=== PATIENT | male | born 1980 | race Caucasian/White ===

== ENCOUNTER 2024-08-27 17:43 | Inpatient (IN) ==
--- NOTE | 2024-08-27 18:28 | Emergency Department Note ---
Impression & Plan Alcohol abuse, Alcohol withdrawal ED Provider Note NAME: CHANDRAKANT MOLINA AGE: 44 SEX: M : 1980 ARRIVES VIA: Walk-In INFORMANT: Patient, ED PROVIDER(S): Mariano Roque MD CHIEF COMPLAINT: Detox request MEDICAL DECISION MAKING: Patient presents due to concern for detox request. IV was established and blood work was obtained. Patient with a normal white count H&H and platelet count. The patient's kidney function is unremarkable. Alcohol was ordered which was 100. Patient was ordered nicotine gum as well as IV Ativan for anxiety. Chest x-ray performed shows infectious inflammatory bronchiolitis versus reactive small airway disease. The patient has no acute respiratory complaints at this time. Normal white count do not believe requires any specific treatment as Ki has clear lung sounds. I did speak with case management who evaluated the patient after discussion the patient will remain inpatient for detox like to go home thereafter. I did speak the on-call hospital service Dr. Chavez and the patient was admitted to medicine service. Dr. Chavez would put in alcohol withdrawal medications. Discussion w/ other healthcare providers: Dr. Chavez inpatient medicine service Prior /Outside records reviewed: None Differential diagnosis: Infection, dehydration, metabolic abnormality, hypo/hyperglycemia, electrolyte imbalance, anemia, UTI, pneumonia, thyroid dysfunction among others were considered. Diagnostics, as interpreted by me: ECG: Normal sinus rhythm, rate of 82, normal intervals, normal axis no ST elevations. Cardiac monitoring: An order was placed for continuous cardiac monitoring. The monitor shows a rate of 75 with sinus rhythm. Patient was placed on pulse oximetry Medical decision rules: None Imaging studies: I informally interpreted the patient's Chest x-ray does not show obvious pneumonia or pneumothorax with formal report to follow. HPI: Patient presents due to concern for alcohol use. The patient is requesting detox. Patient does state that he does suffer from significant anxiety. The patient states that he does not like his job and thinks that this also may be contributory. He does report that he typically drinks 8 drinks in the evenings after work. Patient denies any drug use but does have a prior history of opiate abuse and is currently on Suboxone. PAST MEDICAL HISTORY: See Below PAST SURGICAL HISTORY: See Below SOCIAL HISTORY: See Below HOME MEDICATIONS: See Below ALLERGIES: See Below VITALS: See Below PHYSICAL EXAMINATION: GENERAL: NAD, non-toxic. EYE EXAM: Normal conjunctiva. PERRL, no anisocoria and EOM's grossly intact w/o pain. OROPHARYNX: Moist mucus membranes, grossly normal dentition. No tongue fasciculations. NECK: Trachea midline, no stridor. Supple, no nuchal rigidity, no adenopathy, non-tender. No signs of meningismus. FROM of the neck with good chin to chest and neck extension. LUNGS: Clear to auscultation. Normal chest wall mechanics. HEART: NSR, no MRG. ABDOMEN: Abdomen soft, non-tender, no masses, no rebound or guarding. BACK: No CVA TTP. SKIN: No rashes and no bruising. UPPER EXTREMITIES: Upper extremities are grossly normal. No tremors in the upper extremities. LOWER EXTREMITIES: Grossly normal, no edema. NEURO EXAM: A&O x3, cranial nerves II-XII grossly intact, normal speech, moves all 4 extremities. Past Med/Surg History Problem List (Updated 08/31/24 @ 19:16 by Mariano Roque MD) Alcohol abuse (Acute) Alcohol withdrawal (Acute) Back pain, lumbosacral (Acute) Kidney stone (Acute) Social History Smoking Status: Current every day smoker Tobacco Type: Cigarettes Second Hand Exposure: No; Do You Dip or Chew Tobacco: No; Tobacco Cessation Education Requested by Patient: No Hx Alcohol Use: Yes Alcohol type: beer and hard liquor Hx Substance Use: Yes Last Used Substance Other:: Years ago Preferred Language: Greenlandic Communication Ability: Effective Hotel Server Required: No Beliefs That Will Affect Care: None Current Living Situation: Alone Current Living Situation Comment: Apartment with dog and cat Feels Safe at Home: Yes Assistive Devices: None Allergies Allergies Allergy/AdvReac Type Severity Reaction Status Date / Time No Known Allergies Allergy Verified 08/27/24 10:03 Home Meds Home Medications Medication Instructions Recorded Confirmed omeprazole 20 mg capsule,delayed 20 mg PO QAM 04/22/23 08/28/24 release propranolol 20 mg tablet 20 mg PO BID 04/22/23 08/28/24 buprenorphine 2 mg-naloxone 0.5 mg 1 tab sublingual DAILY 08/27/24 08/28/24 sublingual tablet Previous Rx's Medication Instructions Recorded alprazolam 1 mg tablet 1 mg PO DAILY PRN Anxiety #10 tabs 08/30/24 atorvastatin 20 mg tablet 20 mg PO QAM #30 tabs 08/30/24 folic acid 1 mg tablet 1 mg PO QAM #30 tabs 08/30/24 thiamine HCl (vitamin B1) 100 mg 100 mg PO QAM #30 tabs 08/30/24 tablet Results & Data (ED) Vital Signs Vital Signs - 24 hr 08/27/24 17:51 08/27/24 18:17 Temperature 36.6 C Temperature Source Skin Pulse Rate 110 H 90 Respiratory Rate 18 Blood Pressure 145/108 H Blood Pressure Mean 120 Pulse Oximetry 99 Oxygen Delivery Method Room Air Sepsis Recent Fever Within 48 Hours No Sepsis New/Unexplained Change in Mental Status No Sepsis Action Taken by Nursing No Action Required Home Medications Current Medication List: was personally reviewed by me Laboratory Data Attestation: I reviewed the patient's lab results. 08/29/24 06:15 08/29/24 06:15 Lab Results 08/27/24 08/27/24 Range/Units 18:14 21:00 WBC 10.20 (4.8-10.8) K/ul RBC 5.24 (4.70-6.10) M/uL Hgb 15.6 (14.0-18.0) g/dl Hct 43.8 (42.0-52.0) % MCV 83.6 (80.0-100.0) fL MCH 29.8 (25.0-34.0) pg MCHC 35.6 (32.0-36.0) g/dL RDW Std Deviation 35.0 L (36.4-46.3) fL RDW Coeff of Nik 11.7 (11.5-14.5) % Plt Count 262 (130-400) K/uL MPV 10.2 (9.4-12.4) fL Immature Gran % (Auto) 0.3 % Neut % (Auto) 36.9 % Lymph % (Auto) 50.2 % [place] % (Auto) 6.3 % Eos % (Auto) 5.4 % Baso % (Auto) 0.9 % Neut # (Auto) 3.77 (1.40-6.50) K/uL Lymph # (Auto) 5.12 H (1.20-3.40) K/uL [place] # (Auto) 0.64 H (0.11-0.59) K/uL Eos # (Auto) 0.55 H (0.00-0.50) K/uL Baso # (Auto) 0.09 (0.00-0.20) K/uL Immature Gran # (Auto) 0.03 (0.01-0.20) K/uL Sodium 138 (136-145) mmol/L Potassium 3.8 (3.5-5.1) mmol/L Chloride 104 (98-107) mmol/L Carbon Dioxide 24 (21-32) mmol/L Anion Gap 10 (3-11) BUN 17 (6-23) mg/dl Creatinine 0.77 (0.6-1.4) mg/dl Est Cr Clr Drug Dosing 143.3 ml/min eGFR 114.63 BUN/Creatinine Ratio 22.1 H (10-20) Glucose 95 (70-99(Fasting)) mg/dl Calcium 9.6 (8.6-10.3) mg/dl Magnesium 2.1 (1.7-2.4) mg/dl Total Bilirubin 0.7 (0.2-1.0) mg/dl AST 36 (13-39) U/L ALT 48 (7-52) U/L Alkaline Phosphatase 66 (34-104) U/L Total Protein 8.0 (6.0-8.3) gm/dl Albumin 4.9 (3.4-5.0) gm/dl Globulin 3.1 (2.5-4.0) gm/dl Albumin/Globulin Ratio 1.6 (0.9-2) Lipase 44 (11-82) U/L TSH 2.140 (0.300-4.500) uIu/ml Ethyl Alcohol mg/dL 100.4 H (<10.0) mg/dl Administered Medications Discontinued Medications Acetaminophen (Acetaminophen 500 Mg Tab) 500 mg PO Q6H PRN PRN Reason: fever/pain Stop: 09/28/24 19:28 Last Admin: 08/29/24 19:37 Dose: 500 mg Documented By: JOHNNY Alprazolam (Alprazolam 0.5 Mg Tablet) 1 mg PO TID PRN PRN Reason: anxiety Stop: 09/27/24 01:48 Last Admin: 08/28/24 02:06 Dose: 1 mg Documented By: EDDIE Alprazolam (Alprazolam 0.5 Mg Tablet) 1 mg PO BID PRN PRN Reason: anxiety Stop: 09/27/24 01:48 Last Admin: 08/29/24 19:36 Dose: 1 mg Documented By: inspector paper products: 08/29/24 08:25 Dose: 1 mg Documented By: Admin: 08/28/24 20:11 Dose: 1 mg Documented By: inspector paper products: 08/28/24 10:01 Dose: 1 mg Documented By: TRISTA Atorvastatin Calcium (Atorvastatin 20 Mg Tab) 20 mg PO QAM [facility] Stop: 09/28/24 08:59 Last Admin: 08/30/24 08:27 Dose: 20 mg Documented By: Admin: 08/29/24 08:26 Dose: 20 mg Documented By: TRISTA Buprenorphine/Naloxone (Buprenorphine/Naloxone 2/0.5mg Tab) 0.5 tab SL BID [facility] Stop: 09/26/24 21:44 Last Admin: 08/29/24 08:25 Dose: 0.5 tab Documented By: Admin: 08/28/24 21:58 Dose: 0.5 tab Documented By: inspector paper products: 08/28/24 10:00 Dose: 0.5 tab Documented By: Admin: 08/27/24 22:58 Dose: 0.5 tab Documented By: CHARMAINE Buprenorphine/Naloxone (Buprenorphine/Naloxone 2/0.5mg Tab) 0.5 tab SL BID17 [facility] Stop: 09/29/24 08:59 Last Admin: 08/30/24 08:26 Dose: 0.5 tab Documented By: VERN Buprenorphine/Naloxone (Buprenorphine/Naloxone 2/0.5mg Tab) 0.5 tab SL ONE ONE Stop: 08/29/24 18:46 Last Admin: 08/29/24 18:44 Dose: 0.5 tab Documented By: TRISTA Diazepam (Diazepam 5 Mg Tablet) 5 mg PO Q6H [facility] Stop: 09/27/24 10:59 Last Admin: 08/29/24 05:14 Dose: 5 mg Documented By: inspector paper products: 08/29/24 00:33 Dose: 5 mg Documented By: inspector paper products: 08/28/24 16:39 Dose: 5 mg Documented By: Admin: 08/28/24 11:23 Dose: 5 mg Documented By: TRISTA Diazepam (Diazepam 5 Mg Tablet) 5 mg PO Q8H [facility] Stop: 09/28/24 12:59 Last Admin: 08/30/24 04:28 Dose: 5 mg Documented By: inspector paper products: 08/29/24 21:03 Dose: 5 mg Documented By: inspector paper products: 08/29/24 12:54 Dose: 5 mg Documented By: TMP Docusate Sodium (Docusate Sodium 100 Mg Cap) 100 mg PO BID [facility] Stop: 09/28/24 12:14 Last Admin: 08/30/24 08:28 Dose: 100 mg Documented By: Admin: 08/29/24 21:03 Dose: 100 mg Documented By: inspector paper products: 08/29/24 12:54 Dose: 100 mg Documented By: TMP Enoxaparin Sodium (Enoxaparin Inj 40 Mg/0.4 Ml Syr) 40 mg SQ QAM [facility] Stop: 09/27/24 08:59 Last Admin: 08/30/24 08:26 Dose: Not Given Documented By: Admin: 08/29/24 08:26 Dose: Not Given Documented By: Admin: 08/28/24 08:54 Dose: Not Given Documented By: TMP Folic Acid (Folic Acid 1 Mg Tab) 1 mg PO QAM [facility] Stop: 09/27/24 08:59 Last Admin: 08/30/24 08:27 Dose: 1 mg Documented By: Admin: 08/29/24 09:25 Dose: 1 mg Documented By: Admin: 08/28/24 08:53 Dose: 1 mg Documented By: TMP Gabapentin (Gabapentin 600 Mg Tab) 1,200 mg PO NOW ONE Stop: 08/27/24 21:40 Last Admin: 08/27/24 22:58 Dose: 1,200 mg Documented By: CHARMAINE Gabapentin (Gabapentin 600 Mg Tab) 600 mg PO Q6H [facility] Stop: 08/28/24 11:01 Last Admin: 08/28/24 11:23 Dose: 600 mg Documented By: Admin: 08/28/24 06:04 Dose: 600 mg Documented By: EDDIE Gabapentin (Gabapentin 600 Mg Tab) 600 mg PO Q8H [facility] Stop: 08/29/24 11:01 Last Admin: 08/29/24 12:00 Dose: 600 mg Documented By: Admin: 08/29/24 02:53 Dose: 600 mg Documented By: inspector paper products: 11/08/24 17:54 Dose: 600 mg Documented By: TRISTA Gabapentin (Gabapentin 600 Mg Tab) 600 mg PO Q12H [facility] Stop: 08/30/24 11:01 Last Admin: 08/29/24 22:59 Dose: 600 mg Documented By: JOHNNY Thiamine HCl 100 mg/ Syringe 10 mls @ 2 mls/min IV NOW STA Stop: 08/27/24 20:48 Last Admin: 08/27/24 21:30 Dose: 2 mls/min Documented By: CHARMAINE Lorazepam (Lorazepam 2 Mg/1 Ml Vial) 1 mg IV NOW STA Stop: 08/27/24 21:05 Last Admin: 08/27/24 21:20 Dose: 1 mg Documented By: VALERIE Miscellaneous (Remove Nicoderm Patch) 1 each N/A DAILY@59 [facility] Stop: 09/28/24 08:58 Last Admin: 08/30/24 08:26 Dose: 1 each Documented By: Admin: 08/29/24 08:24 Dose: Not Given Documented By: TRISTA Multivitamins (Multivitamin Tab) 1 tab PO [facility] Stop: 09/27/24 08:59 Last Admin: 08/30/24 08:27 Dose: 1 tab Documented By: Admin: 08/29/24 08:26 Dose: 1 tab Documented By: Admin: 08/28/24 08:54 Dose: 1 tab Documented By: TRISTA Nicotine (Nicotine 14 Mg/24 Hr Patch) 1 patch TD [facility] Stop: 09/27/24 00:59 Last Admin: 08/30/24 08:26 Dose: Not Given Documented By: Admin: 08/29/24 09:25 Dose: 1 patch Documented By: Admin: 08/28/24 02:05 Dose: 1 patch Documented By: EDDIE Nicotine Polacrilex (Nicotine Polacrilex 2 Mg Gum) 1 piece MT ONCE ONE Stop: 08/27/24 21:05 Last Admin: 08/27/24 21:20 Dose: 1 piece Documented By: VALERIE Pantoprazole Sodium (Pantoprazole 40 Mg Tab) 40 mg PO QAM [facility] Stop: 09/27/24 08:59 Last Admin: 08/30/24 08:27 Dose: 40 mg Documented By: Admin: 08/29/24 08:25 Dose: 40 mg Documented By: Admin: 08/28/24 08:54 Dose: 40 mg Documented By: TMP Polyethylene Glycol (Polyethylene (Miralax) 17 Gm Pack) 17 gm PO DAILY PRN PRN Reason: Constipation Stop: 09/28/24 14:43 Last Admin: 08/29/24 16:33 Dose: 17 gm Documented By: TMP Propranolol HCl (Propranolol Hcl 20 Mg Tab) 20 mg PO BID [facility] Stop: 09/27/24 01:04 Last Admin: 08/30/24 08:27 Dose: 20 mg Documented By: Admin: 08/29/24 21:03 Dose: 20 mg Documented By: inspector paper products: 08/29/24 08:26 Dose: 20 mg Documented By: Admin: 08/28/24 22:00 Dose: 20 mg Documented By: inspector paper products: 08/28/24 08:54 Dose: 20 mg Documented By: Admin: 08/28/24 02:04 Dose: 20 mg Documented By: BMS Thiamine HCl (Thiamine Hcl 100 Mg Tab) 100 mg PO QAM [facility] Stop: 09/27/24 08:59 Last Admin: 08/30/24 08:26 Dose: 100 mg Documented By: Admin: 08/29/24 08:26 Dose: 100 mg Documented By: Admin: 08/28/24 08:54 Dose: 100 mg Documented By: TMP Imaging Data Radiologist's Impression: Chest X-Ray 08/27/24 18:44 EXAM: Portable AP chest radiograph TECHNIQUE: AP portable radiograph of the chest was obtained. INDICATION: Shortness of breath Comparison: Chest radiograph April 22, 2023 FINDINGS: LINES and TUBES: None CARDIOVASCULAR: Cardiac silhouette again appears mildly prominent, similar to previous. LUNGS/PLEURA: Peribronchial cuffing which may be seen with infectious/inflammatory bronchiolitis versus reactive small airways disease. There are patchy bibasilar densities. No significant pleural fluid. No discernible pneumothorax. OSSEOUS/OTHER: No displaced acute osseous process identified. IMPRESSION: Peribronchial cuffing which may be seen with infectious/inflammatory bronchiolitis versus reactive small airways disease. There are patchy bibasilar densities which may be due to atelectasis or mild airspace disease. Unchanged mildly prominent size of the cardiac silhouette Electronically signed by Balwinder Delgado 08-27-2024 8:20 PM Discharge Plan Visit Data Chief Complaint: Detox Request Stated Complaint: ANXIETY AND NEED OF ALCOHOL DETOX ED Provider: Mariano Roque Discharge Problem: Alcohol abuse, Alcohol withdrawal Patient Disposition: Admitted As Inpatient Discharge Instructions Interventions: ED Discharge Assessment Last Done: 08/28/24 00:14 Discharge Problem: Alcohol withdrawal Qualifiers: Complication of substance-induced condition: uncomplicated Qualified Code(s): F 10.930 - Alcohol use, unspecified with withdrawal, uncomplicated
[2024-08-27 18:58] LABS: Hematocrit (blood only) 43.8 % (42.0-52.0); Hemoglobin 15.6 g/dl (14.0-18.0); Mean Corpuscular Hemoglobin 29.8 pg (25.0-34.0); Mean Corpuscular Hgb Conc 35.6 g/dL (32.0-36.0); Mean Corpuscular Volume 83.6 fL (80.0-100.0); Mean Platelet Volume 10.2 fL (9.4-12.4); Platelet Count 262 K/uL (130-400); RDW Coefficient of Variation 11.7 % (11.5-14.5); Red Blood Count 5.24 M/uL (4.70-6.10)
[2024-08-27 19:05] LABS: Albumin Globulin Ratio 1.6 (0.9-2); Albumin Level 4.9 gm/dl (3.4-5.0); BUN Creatinine Ratio 22.1 (10-20); Bilirubin,Total 0.7 mg/dl (0.2-1.0); Calcium 9.6 mg/dl (8.6-10.3); Creatinine Clr Calc Pharmacy 143.3 ml/min; Globulin 3.1 gm/dl (2.5-4.0); Magnesium 2.1 mg/dl (1.7-2.4); Potassium 3.8 mmol/L (3.5-5.1)
[2024-08-27 19:16] LABS: Basophils # (auto) 0.09 K/uL (0.00-0.20); Basophils % (auto) 0.9 %; Eosinophils # (auto) 0.55 K/uL (0.00-0.50); Eosinophils % (auto) 5.4 %; Immature Granulocytes # (auto) 0.03 K/uL (0.01-0.20); Immature Granulocytes % (auto) 0.3 %; Lymphocytes # (auto) 5.12 K/uL (1.20-3.40); Lymphocytes % (auto) 50.2 %; Monocytes # (auto) 0.64 K/uL (0.11-0.59); Monocytes % (auto) 6.3 %; Neutrophils # (auto) 3.77 K/uL (1.40-6.50); Neutrophils % (auto) 36.9 %
[2024-08-27 19:20] LABS: Thyroid Stimulating Hormone 2.14 uIu/ml (0.300-4.500)
--- NOTE | 2024-08-27 20:20 | XRay Report ---
EXAM: Portable AP chest radiograph TECHNIQUE: AP portable radiograph of the chest was obtained. INDICATION: Shortness of breath Comparison: Chest radiograph April 22, 2023 FINDINGS: LINES and TUBES: None CARDIOVASCULAR: Cardiac silhouette again appears mildly prominent, similar to previous. LUNGS/PLEURA: Peribronchial cuffing which may be seen with infectious/inflammatory bronchiolitis versus reactive small airways disease. There are patchy bibasilar densities. No significant pleural fluid. No discernible pneumothorax. OSSEOUS/OTHER: No displaced acute osseous process identified. IMPRESSION: Peribronchial cuffing which may be seen with infectious/inflammatory bronchiolitis versus reactive small airways disease. There are patchy bibasilar densities which may be due to atelectasis or mild airspace disease. Unchanged mildly prominent size of the cardiac silhouette Electronically signed by Balwinder Delgado 08-27-2024 8:20 PM
[2024-08-27] MEDS: NICOTINE POLACRILEX 2 MG GUM MT ONE (21:20)
[2024-08-27] MEDS: LORazepam 2 MG/1 ML VIAL IV STA (21:20)
[2024-08-27] MEDS: THIAMINE HCL 100 MG in SYRINGE 9 ML IV STA (21:30)
--- NOTE | 2024-08-27 21:37 | History & Physical Report ---
Date of Service August 27, 2024 Assessment & Plan (1) Alcohol withdrawal: Plan: situational hypertension, secondary to above hyperlipidemia, statin Rx discontinued 2 years ago by outpatient provider for unclear reasons as per patient possible BETH, sleep study to be arranged by outpatient provider GERD, stable on PPI anxiety disorder on propranolol, suboptimal, patient follows with [facility] psychiatrist chronic pain/history opioid addiction on Suboxone ongoing tobacco/alcohol abuse Medical telemetry FELI S, DT precautions Utilize propranolol prescribed by psychiatrist for anxiety for BP control Recheck lipid profile, patient would like to resume statin Rx if indicated Nicotine patch DVT prophylaxis. Lovenox subcu Full code Text document was generated using Jirafe voice recognition software. It may contain grammatical or spelling errors. Kindly contact undersigned for clarification of any documentation item in question. History of Present Illness Chief Complaint: Detox Primary Care Provider: Merlin Guthrie MD History obtained from patient, family, and records. Medical history significant for situational hypertension, hyperlipidemia, possible BETH, GERD, anxiety disorder, chronic pain/history opioid addiction on Suboxone, ongoing tobacco/alcohol abuse. Patient noted increased anxiety since last night. 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 Denies suicidality. Patient seen at urgent care center today. Patient proceeded to ER for detox. No prior history of alcohol withdrawal seizures. Medical History as above Surgical History : None Family History : Kidney problems Personal/Social history : Half pack daily, alcohol abuse, protective services officer Allergies Allergy/AdvReac Type Severity Reaction Status Date / Time No Known Allergies Allergy Verified 08/27/24 10:03 Home Medications Medication Instructions Recorded Confirmed Type multivitamin 1 tab PO QAM #0 tabs 08/23/13 08/27/24 History hydroxyzine pamoate 50 mg capsule 50 mg PO TID PRN Unknown 04/22/23 04/22/23 History omeprazole 20 mg capsule,delayed 20 mg PO QAM 04/22/23 08/27/24 History release propranolol 20 mg tablet 20 mg PO BID PRN Anxiety 04/22/23 08/27/24 History buprenorphine 2 mg-naloxone 0.5 mg 1 tab sublingual DAILY 08/27/24 08/27/24 His tory sublingual tablet alprazolam 1 mg tablet 1 mg PO DAILY PRN Anxiety 08/28/24 08/28/24 History Past Med/Surg History Problem List (Updated 08/28/24 @ 09:01 by Russel Chavez MD) Alcohol withdrawal Back pain, lumbosacral (Acute) Kidney stone (Acute) Social History Smoking Status: Current every day smoker Tobacco Type: Cigarettes Second Hand Exposure: No; Do You Dip or Chew Tobacco: No; Tobacco Cessation Education Requested by Patient: No Hx Alcohol Use: Yes Alcohol type: beer and hard liquor Hx Substance Use: Yes Last Used Substance Other:: Years ago Preferred Language: Danish Special Class Welder Required: No Beliefs That Will Affect Care: None Current Living Situation: Alone Current Living Situation Comment: Apartment with dog and cat Feels Safe at Home: Yes Review of Systems Review of Systems: As per HPI, all other systems reviewed and negative Physical Exam Physical Exam: GENERAL: Slightly anxious, pleasant, obese, tremulous, no respiratory distress SKIN: Normal color, warm HEENT: [place] palpebral conjunctivae, no ptosis, dry buccal mucosa NECK : Supple, no tenderness CHEST : CTA, no tenderness HEART : RRR, no obvious murmurs ABDOMEN: Some distention, nontender EXTREMITIES : No LE swelling/tenderness, no other conspicuous deformities noted NEUROLOGIC : Coherent, no facial asymmetry, tremulous, no other gross focality Results & Data Results & Data Vital Signs (Past 12 Hours) Vital Signs Temp Pulse Pulse Resp BP BP Pulse Ox 08/27/24 19:52 94 H 16 98 08/27/24 19:51 98 08/27/24 19:44 94 H 16 142/93 H 98 08/27/24 18:17 90 08/27/24 17:51 36.6 C 110 H 18 145/108 H 99 O2 Del Method 08/27/24 19:52 Room Air 08/27/24 19:51 Room Air 08/27/24 19:44 Room Air 08/27/24 18:17 08/27/24 17:51 Room Air Laboratory Results Laboratory Results WBC 10.20 K/ul (4.8-10.8) 08/27/24 18:14 RBC 5.24 M/uL (4.70-6.10) 08/27/24 18:14 Hgb 15.6 g/dl (14.0-18.0) 08/27/24 18:14 Hct 43.8 % (42.0-52.0) 08/27/24 18:14 MCV 83.6 fL (80.0-100.0) 08/27/24 18:14 MCH 29.8 pg (25.0-34.0) 08/27/24 18:14 MCHC 35.6 g/dL (32.0-36.0) 08/27/24 18:14 RDW Std Deviation 35.0 fL (36.4-46.3) L 08/27/24 18:14 RDW Coeff of Nik 11.7 % (11.5-14.5) 08/27/24 18:14 Plt Count 262 K/uL (130-400) 08/27/24 18:14 MPV 10.2 fL (9.4-12.4) 08/27/24 18:14 Immature Gran % (Auto) 0.3 % 08/27/24 18:14 Neut % (Auto) 36.9 % 08/27/24 18:14 Lymph % (Auto) 50.2 % 08/27/24 18:14 [place] % (Auto) 6.3 % 08/27/24 18:14 Eos % (Auto) 5.4 % 08/27/24 18:14 Baso % (Auto) 0.9 % 08/27/24 18:14 Neut # (Auto) 3.77 K/uL (1.40-6.50) 08/27/24 18:14 Lymph # (Auto) 5.12 K/uL (1.20-3.40) H 08/27/24 18:14 [place] # (Auto) 0.64 K/uL (0.11-0.59) H 08/27/24 18:14 Eos # (Auto) 0.55 K/uL (0.00-0.50) H 08/27/24 18:14 Baso # (Auto) 0.09 K/uL (0.00-0.20) 08/27/24 18:14 Immature Gran # (Auto) 0.03 K/uL (0.01-0.20) 08/27/24 18:14 Sodium 138 mmol/L (136-145) 08/27/24 18:14 Potassium 3.8 mmol/L (3.5-5.1) 08/27/24 18:14 Chloride 104 mmol/L (98-107) 08/27/24 18:14 Carbon Dioxide 24 mmol/L (21-32) 08/27/24 18:14 Anion Gap 10 (3-11) 08/27/24 18:14 BUN 17 mg/dl (6-23) 08/27/24 18:14 Creatinine 0.77 mg/dl (0.6-1.4) 08/27/24 18:14 Est Cr Clr Drug Dosing 143.3 ml/min 08/27/24 18:14 eGFR 114.63 08/27/24 18:14 BUN/Creatinine Ratio 22.1 (10-20) H 08/27/24 18:14 Glucose 95 mg/dl (70-99(Fasting)) 08/27/24 18:14 Calcium 9.6 mg/dl (8.6-10.3) 08/27/24 18:14 Magnesium 2.1 mg/dl (1.7-2.4) 08/27/24 18:14 Total Bilirubin 0.7 mg/dl (0.2-1.0) 08/27/24 18:14 AST 36 U/L (13-39) 08/27/24 18:14 ALT 48 U/L (7-52) 08/27/24 18:14 Alkaline Phosphatase 66 U/L (34-104) 08/27/24 18:14 Total Protein 8.0 gm/dl (6.0-8.3) 08/27/24 18:14 Albumin 4.9 gm/dl (3.4-5.0) 08/27/24 18:14 Globulin 3.1 gm/dl (2.5-4.0) 08/27/24 18:14 Albumin/Globulin Ratio 1.6 (0.9-2) 08/27/24 18:14 Lipase 44 U/L (11-82) 08/27/24 18:14 TSH 2.140 uIu/ml (0.300-4.500) 08/27/24 18:14 Impressions Chest X-Ray 08/27/24 18:44 EXAM: Portable AP chest radiograph TECHNIQUE: AP portable radiograph of the chest was obtained. INDICATION: Shortness of breath Comparison: Chest radiograph April 22, 2023 FINDINGS: LINES and TUBES: None CARDIOVASCULAR: Cardiac silhouette again appears mildly prominent, similar to previous. LUNGS/PLEURA: Peribronchial cuffing which may be seen with infectious/inflammatory bronchiolitis versus reactive small airways disease. There are patchy bibasilar densities. No significant pleural fluid. No discernible pneumothorax. OSSEOUS/OTHER: No displaced acute osseous process identified. IMPRESSION: Peribronchial cuffing which may be seen with infectious/inflammatory bronchiolitis versus reactive small airways disease. There are patchy bibasilar densities which may be due to atelectasis or mild airspace disease. Unchanged mildly prominent size of the cardiac silhouette Electronically signed by Balwinder Delgado 08-27-2024 8:20 PM Diagnostic Findings EKG as per my interpretation : Rate 80, NSR, normal axis, T wave flattening inferior leads
[2024-08-27] MEDS ORDERED: Ativan IV Alcohol Withdrawal--Active Protocol IV PRN (21:39)
[2024-08-27] MEDS ORDERED: GABAPENTIN 1200MG ALCOHOL WITHDRAWAL LOAD PO STA (21:39)
[2024-08-27] MEDS ORDERED: LORazepam 2 MG/1 ML VIAL IV PRN ×3 (21:39)
[2024-08-27] MEDS ORDERED: NICOTINE POLACRILEX 2 MG GUM MT PRN (21:41)
[2024-08-27] MEDS ORDERED: PROMETHAZINE 12.5 MG/50.5 ML BAG IV PRN (21:42)
[2024-08-27] MEDS: BUPRENORPHINE/NALOXONE 2/0.5MG TAB SL SCH (22:58)
[2024-08-27] MEDS: GABAPENTIN 600 MG TAB PO ONE (22:58)
[2024-08-28] MEDS ORDERED: ALPRAZolam 0.5 MG TABLET PO PRN (01:49)
[2024-08-28] MEDS: PROPRANOLOL HCL 20 MG TAB PO SCH (02:04)
[2024-08-28] MEDS: NICOTINE 14 MG/24 HR PATCH TD SCH (02:05)
[2024-08-28] MEDS: ALPRAZolam 0.5 MG TABLET PO PRN ×2 (02:06→10:01)
[2024-08-28] MEDS: GABAPENTIN 600 MG TAB PO SCH ×2 (06:04→17:54)
[2024-08-28 06:32] LABS: Calcium 9.7 mg/dl (8.6-10.3); Chol HDL Ratio 5.9 (0-5); Creatinine Clr Calc Pharmacy 126.2 ml/min; Potassium 4.5 mmol/L (3.5-5.1)
[2024-08-28 06:41] LABS: Hematocrit (blood only) 41.6 % (42.0-52.0); Hemoglobin 14.9 g/dl (14.0-18.0); Mean Corpuscular Hemoglobin 30.2 pg (25.0-34.0); Mean Corpuscular Hgb Conc 35.8 g/dL (32.0-36.0); Mean Corpuscular Volume 84.4 fL (80.0-100.0); Mean Platelet Volume 10.4 fL (9.4-12.4); Platelet Count 218 K/uL (130-400); RDW Coefficient of Variation 11.9 % (11.5-14.5); RDW Standard Deviation 35.8 fL (36.4-46.3); Red Blood Count 4.93 M/uL (4.70-6.10); White Blood Count 7.34 K/ul (4.8-10.8)
[2024-08-28 07:09] LABS: ALC (manual) 3.67 K/uL (1.2-3.4); ANC (manual) 2.72 K/uL (1.4-6.5); Eosinophils # (manual) 0.66 K/uL (0-0.50); Eosinophils % (manual) 9 %; Lymphocytes # (manual) 2.42 K/uL (1.2-3.4); Lymphocytes % (manual) 33 %; Monocytes # (manual) 0.29 K/uL (0.11-0.59); Monocytes % (manual) 4 %; Neutrophils # (manual) 2.72 K/uL (1.40-6.50); Neutrophils % (manual) 37 %; RBC Morphology Unremarkable; Reactive Lymphocytes # (manual) 1.25 K/uL; Reactive Lymphocytes % (manual) 17 %
[2024-08-28] MEDS: FOLIC ACID 1 MG TAB PO SCH (08:53)
[2024-08-28] MEDS: PANTOprazole 40 MG TAB PO SCH (08:54)
[2024-08-28] MEDS: THIAMINE HCL 100 MG TAB PO SCH (08:54)
[2024-08-28] MEDS: MULTIVITAMIN TAB PO SCH (08:54)
[2024-08-28] MEDS: ENOXAPARIN INJ 40 MG/0.4 ML SYR SQ SCH (08:54)
--- OUTSIDE RECORDS SUMMARY | 2024-08-28 09:19 | External Medical Summary | Summary of Care ---
Author Name Unknown Organization [facility] Address [address] [place] [address] Phone [phone] Care Team Providers Care Kiln Tester Name Role Phone Merlin Guthrie MD Primary Care Provider + Reason for Visit * Reason Comments NEW PATIENT * Evaluate & Treat - Unlimited Visits (Within 3 days (urgent)) - Authorized Specialty Diagnoses / Procedures Referred By Contac t Referred To Contact Sleep Medicine / Sleep Disorders Diagnoses Generalized anxiety disorder with panic attacks Snoring Other parasomnia Manfred Ruby MD [address] [place] [address] Referral ID Status Reason Start Date Expiration Date Visits Requested Visits Authorized [id number] Authorized Specialty Services Required 4 2 2 Encounter Details Date Type Department Care Team (Late st Contact Info) Description 08/27/2024 8:40 AM EST Telemedicine Sleep Disorders Ctr [facility] [address] [place] [phone] Alyx Garcia DO [address] [place] [address] Snoring*; Observed sleep apnea; Insomnia, unspecified type; Sleep apnea, unspecified type; GENERALIZED ANXIETY DISORDER Allergies No known active allergiesdocumented as of this encounter (statuses as of 08/27/2024) Medications Medication Sig Dispensed Refills Start Date End Date Status [place]-3 1000 MG Oral Capsule Take by mouth . Active NATURAL SUPPLEMENT Take by mouth daily. Athletic Greens Active Meclizine HCl 25 MG Oral Tablet (Antivert)Indicat ions:Benign paroxysmal positional vertigo, unspecified laterality,Histor y of 2019 novel coronavirus disease (COVID-19),Histor y of otitis media Take 0.5 Tablets by mouth 3 times a day as needed for Dizziness. 20 Tablet 11/26/2023 Active Omeprazole 20 MG Oral Capsule Delayed Release (PriLOSEC)Indicat ions:Gastroesopha geal reflux disease without esophagitis TAKE 1 CAPSULE BY MOUTH IN THE MORNING. EVERY MORNING. 90 Capsule 1 04/04/2024 Active ALPRAZolam 1 MG Oral Tablet (xaNAX) Take 1 Tablet by mouth daily as needed for Anxiety. 5 Tablet 08/13/2024 Active Propranolol HCl 20 MG Oral Tablet (Inderal) Take 1 Tablet by mouth in the morning and 1 Tablet before bedtime. 60 Tablet 2 08/13/2024 Active Buprenorphine HCl-Naloxone HCl 2-0.5 MG Sublingual Film (Suboxone) Place under the tongue daily. Active Atorvastatin Calcium 40 MG Oral Tablet (Lipitor)Indicati ons:Hyperlipidemi a with target LDL less than 130 Take by mouth 1 Tablet before bedtime. In the morning.. 90 Tablet 3 08/06/2022 08/27/2024 Discontinued (Medication List Clean Up) documented as of this encounter (statuses as of 08/27/2024) Active Problems Problem Noted Date Diagnosed Date Narcotic abuse in remission 08/24/2019 Hyperlipidemia with target LDL less than 130 09/2018 GERD (gastroesophageal reflux disease) 8 Intrinsic eczema 09/29/2018 Elevated blood pressure read ing in office without diagnosis of hypertension 09/29/2018 Family hx-kidney disease 10/28/2012 GENERALIZED ANXIETY DISORDER 01/16/2011 Panic disorder 01/16/2011 documented as of this encounter (statuses as of 08/27/2024) Resolved Problems Problem Noted Date Diagnosed Date Resolved Date Narcotic abuse 01/20/2014 08/24/2019 Overweight (BMI 25.0-29.9) 10/28/2012 1 11/30/2017 Impacted cerumen 10/28/2012 08/06/2013 Overview: Bilaterally documented as of this encounter (statuses as of 08/27/2024) Immunizations Name Administration Dates Next Due COVID-19 mRNA, LNP-s, No Pre serve, 2-Dose Series (eTec) 09/06/2021 Covid-19 Ad26, Single Dose (Jarvis/J&J) 021 Seasonal Influenza, PF, 6 M & above, IM , (FluLaval or Fluzone) 08/30/2018 TDAP (age 10 and older)(Boostrix) 10/28/2012 documented as of this encounter Social History Tobacco Use Types Packs/Day Years Used Date Smoking Tobacco: Every Day Cigarettes 0.5 6.8 Started: 2017 Smokeless Tobacco: Never Tobacco Cessation:Ready to Q uit: Not Asked; Counseling Given: Not Answered Comments:3-4 cigarettes per day Alcohol Use Standard Drinks/Week Comments Yes 14 (1 standard drink = 0.6 oz pu re alcohol) AUDIT-C Answer Date Recorded Frequency of Alcohol Consumption 4 or more times a week 09/29/2018 Average Number of Drinks 1 or 2 018 Frequency of Binge Drinking Not on file 09/20 PHQ-2 Answer Date Recorded PHQ Adult Total Score 0 11/26/2023 Hunger Vital Sign Answer Date Recorded Within the past 12 months, y ou worried that your food would run out before you got the money to buy more. Never true 03/03/20 24 Within the past 12 months, t he food you bought just didn't last and you didn't have money to get more. Never true 03/03/2024 Childcare Answer Date Recorded Do you feel overwhelmed with taking care of a child, family member or friend? No 03/03/2024 Does your family need help f inding childcare? (Household - for ages 0-17 years) Not on file 03/03/2024 Clothing Answer Date Recorded Have you been unable to get clothing when it was really needed? No 03/03/2024 Is your family able to get c lothes or diapers when needed? (Household - for ages 0-17 years) Not on file 03/03/2024 Personal Safety Answer Date Recorded Do you feel unsafe or have concerns for your saf ety? No 03/03/2024 Do you have concerns for you r family's safety? (Household - for ages 0-17 years) Not on file 03/03/2024 Utilities Answer Date Recorded Do you have trouble paying y our heating, water, or electric bill? No 03/03/2024 Is your family able to pay t he heat, water, or electric bill? (Household - for ages 0-17 years) Not on file 03/03/2024 Does your family have access to good internet? (Household - for ages 0-17 years) Not on file 03/03/2024 Employment Status Answer Date Recorded Are you unemployed or without regular income? No 03/03/2024 Does the household have a re gular source of income? (Household - for ages 0-17 years) Not on file 03/03/2024 Social Connections Answer Date Recorded How often do you feel lonely or isolated from th ose around you? Rarely 03/03/2024 Financial Resource Strain Answer Date R ecorded Do you have any trouble payi ng for your medications, or do you think you might in the future? No 03/03/2024 Does your family have troubl e paying for medicine? (Household - for ages 0-17 years) Not on file 03/03/2024 Transportation Needs Answer Date Record ed READ ONLY Do you have troubl e getting a ride to medical visits or work? Never True 03/03/2024 Does your family have a hard time getting a ride to doctors visits? (Household - for ages 0-17 years) Not on file 03/03/2024 Has lack of transportation k ept you from medical appointments, meetings, work, or from getting things needed for daily living? Check all that apply. (Adult - for ages 18 years and over) Not on file 03/03/2024 Do you (or your family) have trouble finding or paying for a ride (transportation)? (Household - for ages 0-17 years) Not on file 03/03/2024 Housing Stability Answer Date Recorded Do you currently live in a s helter or have no steady place to sleep at night? No 03/03/2024 READ ONLY Do you think you a re at risk of becoming homeless? No 03/03/2024 Does your family worry about paying for your home or becoming homeless? (Household - for ages 0-17 years) Not on file 0 03/03/2024 Are you homeless or worried that you might be in the future? (Adult - for ages 18 years and over) Not on file Are you (or your family) era eless or worried that you might be in the future? (Household - for ages 0-17 years) Not on file Food Insecurity Answer Date Recorded Do you need food for this week? No 03/03/2024 Are you able to get enough f ood for your family? (Household - for ages 0-17 years) Not on file 03/03/2024 Does your family need food t his week? (Household - for ages 0-17 years) Not on file 03/03/2024 Do you always have enough fo od for your family? (Household - for ages 0-17 years) Not on file 03/03/2024 Sex and Gender Information Value Date Recorded Sex Assigned at Male 08/24/2019 2:49 PM EST Gender Identity Male 08/24/2019 2:49 PM EST Sexual Orientation Straight 03/03/2024 1: 52 PM EDT Sexual Orientation Choose not to disclose 2023 1:52 PM EDT Job Start Date Occupation Industry Not on file Not on file Not on file documented as of this encounter Last Filed Vital Signs Vital Sign Reading Time Taken Comments Blood Pressure - - Pulse - - Temperature - - Respiratory Rate - - Oxygen Saturation - - Inhaled Oxygen Concentration - - Weight - - Height 172.7 cm (5' 8") 08/27/2024 8:10 AM EST Body Mass Index - - documented in this encounter Patient Instructions * Patient Instructions* Alyx Garcia DO - 08/27/2024 9:24 AM EST SLEEP APNEA We are concerned that you may have sleep apnea. Sleep apnea is when someone has difficulties with breathing only during sleep. This typically happens without the patient being aware they are having breathing issues. Obstructive sleep apnea is very common. It can be seen in kids and adults. It can cause symptoms of excessive daytime sleepiness, fatigue, morning headaches, and poor memory and cognition. It can also lead to difficulties at work or school and motor vehicle accidents. If left untreated, it puts people at risk for heart attacks, strokes, and diabetes. We diagnose sleep apnea with either an in-lab sleep study or a home sleep apnea test. More information can be obtained at: [email or web address] documented in this encounter Progress Notes * Alyx Garcia DO - 08/27/2024 8:39 AM EST Sleep Medicine Evaluation Estela Romerocarlos [facility] [address] [facility] [place], [place] [address] Patient location: HOME. I was in a hospital or clinic location. After connecting through televideo,patient was verified with two unique identifiers. Patient (or authorized legal credit representative) was then informed that this was a Telemedicine visit and being conducted confidentially over secure lines. Methods to assure confidentiality were taken. Patient acknowledged consent and understanding of pr ivacy and security of the Telemedicine visit. The patient agreed to participate. Time dedicated to today's appointment: 40 minutes Consultation was requested by: Manfred Ruby MD (Psychiatry) for: RAKEL w/ panic attacks, snoring, other parasomnia. "episodes where he wakes up panicked at night. He is concerned he may have sleep apnea and wants topursue further evaluation and workup for this. He says a friend recently observed him sleeping and told the pt that he is waking up gasping for air at night." and a copy of this report is being sent to the provider electronically. Initially connected -- I could hear but not see patient. He noted he has had difficulty with this for prior appointments. He was also trying to download the hong -- will try to connect through the hong instead of the browser. Hong worked; we were then able to see & hear each other. Relevant available records reviewed. HPI: Andrés Olguin is a(n) 44 year old male with hx RAKEL, OUD, alcohol use disorder, elevated BP readings, presenting for evaluation of suspected sleep apnea, awakening in a panic. Awakening in a panic for about 2 months. Happening about 3-4 times a week. Patient reports a typical bedtime of 7-8 pm. It takes 1-2 hours or longer to fall asleep. Often cannot get to sleep until midnight-1AM. Patient awakens "constantly" overnight, sleeps at most 2 hours at a time. Anxiety seems to impact his sleep, feeling like he cannot breathe, nose feeling clogged. Elevates HOB which helps some. Patient awakens for the day at 4 AM, feeling pretty tired. Needs to be at work at 5 AM. Patient does not feel too tired during the day, but not sleeping well makes his anxiety worse. Patient does not take naps. Patient does have caffeine, 1-2 cups in the morning, and a Celsius drink before gym at 1:30 pm. The patient reports having ("+" indicates reports, "-" indicates denies): + Snoring, loudly + Observed apneas + Mouth breathing, wakes up with very dry mouth - Acid reflux at night, controlled with medication + Nocturia - Morning headaches Restless Legs Syndrome Symptoms ("+" indicates reports, "-" indicates denies): Sometimes anxiety seems to cause skin-crawling feeling, all over, not localized. + Urge to move at night + Better with movement + Disrupts sleep Parasomnias Symptoms ("+" indicates reports, "-" indicates denies): - Sleepwalking - Dream-enactment Excessive Daytime Sleepiness: Shafer Sleepiness Scale 1 Modified F.O.S.Q. 33 no Drowsy driving no Sleepy with sedentary activity Shafer Sleepiness Scale Question 08/27/2024 8:13 AM EST - Filed by Yessica Durbin LPN What is the chance you will doze off in the following situation? Sitting and reading Slight chance of dozing Watching TV No chance of dozing Sitting inactive in a public place, such as a theater or meeting No chance of dozing As a passenger in a car for an hour without a break No chance of dozing Lying down to rest in the afternoon when circumstances permit No chance of dozing When sitting and talking to someone No chance of dozing When sitting quietly after lunch without alcohol No chance of dozing In a car, while stopped for a few minutes in traffic No chance of dozing Score (range: 0 - 24) 1 Functional Outcomes Of Sleep Question 08/27/2024 8:14 AM EST - Filed by Yessica Durbin LPN Please complete the following questions. Do you have difficulty concentrating because you are sleepy or tired? Yes, a little Do you have difficulty remembering things because you are sleepy or tired? Yes, a little Do you have difficulty operating a motor vehicle for short distances (less than 100 miles) because you become sleepy? No Do you have difficulty operating a motor vehicle for long distances (more than 100 miles) because you become sleepy? No Do you have difficulty visiting family or friends in their home because you become sleepy or tired?No Has your relationship with family, friends, or work colleagues been affected because you are sleepyor tired? No Do you have difficulty watching a movie or video because you become sleepy or tired? No Do you have difficulty being as active as you want to be in the evening because you are tired or sleepy? No Do you have difficulty being as active as you want to be in the morning because you are tired or sleepy? Yes, moderate Has your mood been affected because you are sleepy or tired? Yes, extreme Score (range: 10 - 40) 33 Flu Vaccine Questionnaire Question 08/27/2024 8:35 AM EST - Filed by Patient Get your flu shot at your upcoming appointment. Please select one of the options below. I don't want the flu shot Prior sleep study: none PMH: Past Medical History: Diagnosis Date Generalized anxiety disorder 01/16/2011 Narcotic abuse (HCC) 01/20/2014 Narcotic abuse in remission (HCC) 08/24/2019 Overweight (BMI 25.0-29.9) 10/28/2012 Panic disorder 01/16/2011 Past Surgical History: Procedure Laterality Date COLONOSCOPY, DIAGNOSTIC (RECTUM) 02/16/2019 normal biopsies/COLONOSCOPY FLEXIBLE PROXIMAL DIAGNOSTIC performed by Danielle Bennett MD at ENDOSCOPY [facility] ALLERGIES: Review of patient's allergies indicates: No Known Allergies MEDS: Current Outpatient Medications Medication Sig Dispense Refill Buprenorphine HCl-Naloxone HCl 2-0.5 MG Sublingual Film (Suboxone) Place under the tongue daily. ALPRAZolam 1 MG Oral Tablet (xaNAX) Take 1 Tablet by mouth daily as needed for Anxiety. 5 Tablet 0 Propranolol HCl 20 MG Oral Tablet (Inderal) Take 1 Tablet by mouth in the morning and 1 Tablet before bedtime. 60 Tablet 2 Omeprazole 20 MG Oral Capsule Delayed Release (PriLOSEC) TAKE 1 CAPSULE BY MOUTH IN THE MORNING. EVERY MORNING. 90 Capsule 1 Meclizine HCl 25 MG Oral Tablet (Antivert) Take 0.5 Tablets by mouth 3 times a day as needed for Dizziness. 20 Tablet 0 NATURAL SUPPLEMENT Take by mouth daily. Athletic Greens [place]-3 1000 MG Oral Capsule Take by mouth . No current facility-administered medications for this visit. Takes the Xanax up to 5 times per month (all that's prescribed). Melatonin he takes when he has it, usually takes one a night, 10 mg. Has tried CBD, did not prevent awakening in a panic. FHx: father had sleep issues. Social hx: Tobacco use: cigarettes Alcohol use: yes Drug use: no Employment: corrections PE: VITAL SIGNS: Filed Vitals: 08/27/24 0810 Height: 1.727 m (5' 8") Weight 231 lbs on 11/26/23 BP 140/88 on 11/26/23 (most recently recorded vitals in our system) Body mass index is 35.26 kg/m. PE limited due to telemedicine. Patient does not appear to be in distress. No rash on visible skin on face. Breathing does not appear to be labored. No audible stridor. Speech is clear and appropriate. Appropriate affect. Mallampati IV via tele-video. IMPRESSION/RECOMMENDATIONS: Snoring, witnessed apneas, panic awakenings, fatigue - suspect BETH - STOP-BANG 6 (snoring, tired, observed apneas, HTN, BMI > 35, and male) - Discussed the pathophysiology, implications on short- and long-term health, diagnostic evaluation, and likely treatment options of BETH. - discussed PSG vs home sleep apnea testing; chance of under-estimating or missing sleep apnea withhome testing; PSG better differentiates between obstructive vs central events (note on Suboxone). Patient requests home testing rather than in-lab as initial testing. - Schedule a WatchPAT home sleep apnea test to evaluate for BETH. Discussed that if the HSAT does not show BETH, we will recommend in-lab PSG. If testing confirms significant sleep apnea, will likely plan to treat with CPAP (vs consider alternative tx if appropriate). - Avoid driving when sleepy/drowsy. Please verify the following with the patient before ordering WatchPAT study: Does patient have Wifi? Yes Does patient have smart phone? Yes Do they have acrylic nails or nail hungarian? No: Do they have a pacemaker? No Are they on alphablockers? Please list which med is the alphablocker: no Patient to take nighttime dose of propranolol 3 hours prior to starting the study. What is the phone number of the cell phone they will be using? [phone] Work note printed, to be emailed to patient. Follow-up: Return MyG with WatchPAT results. | Check-out note: WatchPAT Sue Payton (preferably mid- to late afternoon, to be after his typical work hours) Alyx Garcia DO documented in this encounter Nursing Notes * Yessica Durbin LPN - 08/27/2024 8:14 AM EST New pt video visit for evaluation of snoring, parasomnia, and RAKEL. Shafer Sleepiness Scale Question 08/27/2024 8:13 AM EST - Filed by Yessica Durbin LPN What is the chance you will doze off in the following situation? Sitting and reading Slight chance of dozing Watching TV No chance of dozing Sitting inactive in a public place, such as a theater or meeting No chance of dozing As a passenger in a car for an hour without a break No chance of dozing Lying down to rest in the afternoon when circumstances permit No chance of dozing When sitting and talking to someone No chance of dozing When sitting quietly after lunch without alcohol No chance of dozing In a car, while stopped for a few minutes in traffic No chance of dozing Score (range: 0 - 24) 1 Functional Outcomes Of Sleep Question 08/27/2024 8:14 AM EST - Filed by Yessica Durbin LPN Please complete the following questions. Do you have difficulty concentrating because you are sleepy or tired? Yes, a little Do you have difficulty remembering things because you are sleepy or tired? Yes, a little Do you have difficulty operating a motor vehicle for short distances (less than 100 miles) because you become sleepy? No Do you have difficulty operating a motor vehicle for long distances (more than 100 miles) because you become sleepy? No Do you have difficulty visiting family or friends in their home because you become sleepy or tired?No Has your relationship with family, friends, or work colleagues been affected because you are sleepyor tired? No Do you have difficulty watching a movie or video because you become sleepy or tired? No Do you have difficulty being as active as you want to be in the evening because you are tired or sleepy? No Do you have difficulty being as active as you want to be in the morning because you are tired or sleepy? Yes, moderate Has your mood been affected because you are sleepy or tired? Yes, extreme Score (range: 10 - 40) 33 documented in this encounter Plan of Treatment Upcoming Encounters Date Type Department Care Team (Late st Contact Info) Description 10/08/2024 4:30 PM EST Telemedicine Psychiatry [facility] [address] [place] [address] Manfred Ruby MD [address] [place] [address] 11/13/2024 8:00 AM EST Office Visit [facility] [address] [facility] [place] [address] Merlin Sena MD [address] [place] [address] Scheduled Orders Name Type Priority Associated Diagnoses Orde r Schedule HOME SLEEP TEST W/TYPE 4 MONITOR, 3 CHANNEL Procedures Routine Snoring Observed sleep apnea Insomnia, unspecified type Sleep apnea, unspecified type GENERALIZED ANXIETY DISORDER Ordered: 08/27/2024 Health Maintenance Due Date Last Done Comments Pneumococcal Vaccine: Pediatrics (0 to 5 Years) and At-Risk Patients (6 to 64 Years) (1 of 2 - PCV) 1988 Hepatitis B Vaccine (1 of 3 - 19+ 3-dose series) 2001 DTap/Tdap Vaccines (2 - Td or Tdap) 10/28/2022 10/28/2012 COVID-19 Vaccine (3 - season) 2024 09/06/2021, 01/27/2021 Influenza Vaccine (FLU shot) (#1) 2024 08/30/2018 Depression Screening 11/26/2024 11/26/2023 Diabetes Screening 08/06/2025 08/06/2022, 0 06/28/2020, 08/24/2019, Additional history exists Lipid Panel 08/06/2027 08/06/2022, 11/0 01/2019, 09/29/2018, Additional history exists Hepatitis C Screening Completed 11/30/2014 HPV (Gardasil) Vaccine Aged Out No lo nger eligible based on patient's age to complete this topic MENINGOCOCCAL (MENACTRA/MENVEO) Aged Out No longer eligible based on patient's age to complete this topic documented as of this encounter Medical Devices Not on filedocumented as of this encounter Visit Diagnoses Diagnosis Snoring- Primary Other dyspnea and respiratory abnormality Sleep apnea, unspecified type Insomnia, unspecified type GENERALIZED ANXIETY DISORDER Generalized anxiety disorder documented in this encounter Care Teams Kiln Tester Relationship Specialty Start Date End Date Merlin Guthrie MD [address] [place] [address] PCP - General Internal Medicine 04/27/14 documented as of this encounter
--- NOTE | 2024-08-28 09:23 | Hospitalist Progress Note ---
Date of Service August 28, 2024 Assessment & Plan (1) Alcohol withdrawal: Plan Andrés Olguin is a 44y/o M with PMHx significant for hyperlipidemia, GERD, history of narcotic abuse [on Suboxone] and panic disorder/anxiety who presented to the ED on 08/27/2024 for alcohol detoxification and increased anxiety. Patient reports that he was previously drinking 5 vodka shooters and a sixpack of alcoholic seltzers per night. His last drink was yesterday evening around 6 PM. He is very eager to stop drinking entirely. He does have a history of substance abuse disorder and is currently on Suboxone. Alcohol Withdrawal/Alcohol Detox: Currently on gabapentin taper and po Valium 5 mg Q6H. Alcohol withdrawal symptoms are currently well-controlled. Continue PRN Ativan. Patient is not interested in inpatient alcohol rehab at this time. He already follows with Dr. Manfred Ruby ([facility]). Continue telemetry monitoring. Possible BETH: Patient recently saw [facility] via telemedicine yesterday. Sleep study to be arranged as an outpatient. Hyperlipidemia: Patient was previously on statin therapy which was discontinued approximately 2 years ago by an outpatient provider for unclear reasons. Lipid panel this morning --> Triglycerides 255, Total Cholesterol 277, LDL 179, HDL 47, VLDL 51. Patient agreeable with restarting statin therapy --> Atorvastatin 20mg daily. Other Chronic Medical Conditions: Anxiety/panic disorder/GERD/substance abuse disorder --> Can continue home medications for these specific conditions. Encourage smoking cessation. DVT Prophylaxis: SQ Lovenox Code Status: FULL CODE PCP: Merlin Guthrie MD Disposition: Admitted in Med/Surg + Telemetry Patient seen in collaboration with Dr. Leavitt. Please see addendum. I spent a total of 55 minutes coordinating, documenting, and providing care for this patient excluding time spent in the performance of separately billed services. This included personally reviewing all current laboratories and imaging studies, medical reconciliation, outpatient chart review and discussion with specialists. This chart was completed in part utilizing Speech Voice Recognition Software. Grammatical errors, random word insertions, pronoun errors, and incomplete sentences are an occasional consequence of this system due to software limitations, ambient noise, and hardware issues. Any formal questions or concerns about the content, text, or information contained within the body of this dictation should be directly addressed to the provider for clarification. Admission and Anticipated Discharge Date Admission Date: August 27, 2024 Supervising Physician Co-Signing Physician Notes Patient seen and examined at bedside. Withdrawal symptoms are well-controlled. Valium added ; continue on Ativan and gabapentin I have reviewed the advanced practitioner's documentation, and I agree with, and take responsibility for the plan of care I spent a total of 20 minutes coordinating, documenting, and providing care for this patient excluding time spent in the performance of separately billed services. All of the aforementioned completed while collaborating with the assigned advanced practitioner for a full treatment plan Subjective Patient reports that he was previously drinking 5 vodka shooters and a sixpack of alcoholic seltzers per night. His last drink was yesterday evening around 6 PM. He is very eager to stop drinking entirely. He already follows with Dr. Manfred Ruby ([facility]). He does have a history of substance abuse disorder and is currently on Suboxone. He is tired this morning but otherwise feels well, denies any shaking or tremulous behavior. Did have some nausea last night but that has since resolved. Reports he is very anxious usually but feels relaxed this morning. Review of Systems Review of Systems: At least ten systems reviewed and negative, except as noted in the subjective section. Physical Exam Physical Exam: General: WD/WN, vitals as above, NAD, laying down in bed, pleasant, conversing appropriately. A+Ox3, euthymic affect. HEENT: Normocephalic, atraumatic. Conjunctivae normal, anicteric sclerae. External ear and nose normal, oropharynx normal. Respiratory: Normal respiratory effort, lungs clear to auscultation, no wheeze, rales, rhonchi. No accessory muscle use. Cardiovascular: Regular rate, rhythm, no murmur, normal peripheral pulses, no BLE edema. Vessels: No JVD. Abdomen/GI: Normal bowel sounds, soft, nontender, no hepatosplenomegaly. Extremities/Musculoskeletal: No cyanosis or clubbing, extremities motor strength intact, moves all extremities. Neurologic: No focal deficits, CN's II-XI not formally tested but appear grossly intact bilaterally. No tremulous behavior. Skin: No rashes, normal color, warm/dry. Results & Data Results & Data Vital Signs (Past 12 Hours) Vital Signs Temp Pulse Pulse Resp BP Pulse Ox O2 Del Method 08/28/24 07:27 36.6 C 64 16 157/93 H 97 Room Air 08/28/24 07:25 65 08/28/24 03:56 36.5 C 75 18 130/81 98 Room Air 08/28/24 00:19 72 08/28/24 00:13 36.7 C 81 16 144/81 H 96 Room Air 08/27/24 23:00 88 12 140/94 94 Room Air 08/27/24 22:10 88 08/27/24 22:00 83 20 123/75 94 Room Air Laboratory Results Short CBC 08/27/24 08/28/24 Range/Units 18:14 05:34 WBC 10.20 7.34 (4.8-10.8) K/ul Hgb 15.6 14.9 (14.0-18.0) g/dl Hct 43.8 41.6 L (42.0-52.0) % Plt Count 262 218 (130-400) K/uL BMP 08/27/24 08/28/24 18:14 05:34 Sodium 138 137 Potassium 3.8 4.5 Chloride 104 103 Carbon Dioxide 24 28 BUN 17 20 Creatinine 0.77 0.87 Glucose 95 99 Calcium 9.6 9.7 Liver Function 08/27/24 Range/Units 18:14 Total Bilirubin 0.7 (0.2-1.0) mg/dl AST 36 (13-39) U/L ALT 48 (7-52) U/L Alkaline Phosphatase 66 (34-104) U/L Albumin 4.9 (3.4-5.0) gm/dl (1) Alcohol withdrawal Complication of substance-induced condition: uncomplicated Qualified Code(s): F10.930 - Alcohol use, unspecified with withdrawal, uncomplicated
[2024-08-28] MEDS: diazePAM 5 MG TABLET PO SCH (11:23)
--- NOTE | 2024-08-28 13:29 | Electrocardiogram Report ---
Test Reason : Blood Pressure : */* mmHG Vent. Rate : 82 BPM Atrial Rate : 82 BPM P-R Int : 176 ms QRS Dur : 82 ms QT Int : 364 ms P-R-T Axes : 32 0 3 degrees QTcB Int : 425 ms Normal sinus rhythm Normal ECG No previous ECGs available Confirmed by Owen Cisneros ([id number]) on 08/28/2024 1:28:28 PM Referred By: REFERRED SELF Confirmed By: Owen Cisneros
[2024-08-29 06:47] LABS: Hematocrit (blood only) 43.3 % (42.0-52.0); Hemoglobin 15.3 g/dl (14.0-18.0); Mean Corpuscular Hemoglobin 30.2 pg (25.0-34.0); Mean Corpuscular Hgb Conc 35.3 g/dL (32.0-36.0); Mean Corpuscular Volume 85.6 fL (80.0-100.0); Mean Platelet Volume 10.4 fL (9.4-12.4); Platelet Count 208 K/uL (130-400); RDW Standard Deviation 37.2 fL (36.4-46.3); Red Blood Count 5.06 M/uL (4.70-6.10); White Blood Count 6.55 K/ul (4.8-10.8)
[2024-08-29 07:55] LABS: BUN Creatinine Ratio 28.4 (10-20); Calcium 9.4 mg/dl (8.6-10.3); Creatinine Clr Calc Pharmacy 126.1 ml/min
--- NOTE | 2024-08-29 08:00 | Hospitalist Progress Note ---
Date of Service August 29, 2024 Assessment & Plan (1) Alcohol withdrawal: Plan Andrés Olguin is a 44y/o M with PMHx significant for hyperlipidemia, GERD, history of narcotic abuse [on Suboxone] and panic disorder/anxiety who presented to the ED on 08/27/2024 for alcohol detoxification and increased anxiety. Patient reports that he was previously drinking 5 vodka shooters and a sixpack of alcoholic seltzers per night. His last drink was yesterday evening around 6 PM. He is very eager to stop drinking entirely. He does have a history of substance abuse disorder and is currently on Suboxone. Alcohol Withdrawal/Alcohol Detox: Currently on gabapentin taper and po Valium 5 mg Q6H, decreasing frequency to Q8h today. Alcohol withdrawal symptoms are currently well-controlled. Continue PRN Ativan. Patient is not interested in inpatient alcohol rehab at this time. He already follows with Dr. Manfred Ruby ([facility]). Continue telemetry monitoring. Possible BETH: Patient recently saw [facility] via telemedicine yesterday. Sleep study to be arranged as an outpatient. Hyperlipidemia: Patient was previously on statin therapy which was discontinued approximately 2 years ago by an outpatient provider for unclear reasons. Lipid panel this morning --> Triglycerides 255, Total Cholesterol 277, LDL 179, HDL 47, VLDL 51. Patient agreeable with restarting statin therapy --> Atorvastatin 20mg daily. Other Chronic Medical Conditions: Anxiety/panic disorder/GERD/substance abuse disorder --> Can continue home medications for these specific conditions. Encourage smoking cessation. DVT Prophylaxis: SQ Lovenox Code Status: FULL CODE PCP: Merlin Guthrie MD Disposition: Admitted in Med/Surg + Telemetry; Goal for discharge tomorrow 08/30 to home I spent a total of 56 minutes coordinating, documenting, and providing care for this patient excluding time spent in the performance of separately billed serv ices. This included personally reviewing all current laboratories and imaging studies, medical reconciliation, outpatient chart review and discussion with specialists. This chart was completed in part utilizing Speech Voice Recognition Software. Grammatical errors, random word insertions, pronoun errors, and incomplete sentences are an occasional consequence of this system due to software limitat ions, ambient noise, and hardware issues. Any formal questions or concerns about the content, text, or information contained within the body of this dictation should be directly addressed to the provider for clarification. Admission and Anticipated Discharge Date Admission Date: August 27, 2024 Supervising Physician Co-Signing Physician Notes Chart reviewed; discussed with above provider. Continue tapering dose of Valium, continue gabapentin and Ativan as needed Possible DC next couple of days if withdrawal symptoms continue to improve I have reviewed the advanced practitioner's documentation, and I agree with, and take responsibility for the plan of care Subjective Patient lying in hospital bed in no apparent distress. Patient very pleasant. He was on the phone with his therapist when I entered the room. Patient stated that he does not have any children or his significant other. He reports that he has a few friends that are supportive in his sobriety journey. Reports that he is tired this morning but otherwise feels generally well. Denies any tremulous behavior or shaking. Reports that he does feel that he is experiencing some anxiety. When asked what anxiety feels like to him he says that he gets caught up in his thoughts and his thoughts continue to race. Denies SI/SA. Has concerns about his employment and would like to work towards obtaining FMLA. Recommended that he reach out to his HR department directly as case management cannot assist with this. Denies headache, dizziness, SOB, chest pain, palpitations, Nausea, abdominal pain or tenderness. Reports feeling constipated this morning; discussed stool softener options. See A/P for further details Review of Systems Review of Systems: Neuro: (-) Falls, trauma, slurred speech HEENT: (-) FREY, dizziness, dysphagia, visual or auditory changes CV: (-) CP, palpitations, swelling Resp: (-) SOB GI: (-) appetite changes, N/V/D, bowel changes : (-) urinary changes Skin: (-) rashes Psych: (-) anxiety, depression Physical Exam Physical Exam: Neuro: AAOx4, PERRLA, no aphagia, memory changes, CNII-XII grossly intact HEENT: head normocephalic, moist mucus membranes CV: S1/S2, (-) M/G/R, (-) edema, cap refill < 3 seconds Resp: Lungs CTA in all freed. On RA GI: Abdomen S/NT/ND, Ax4 bowel sounds, (-) CVA tenderness Musculoskeletal: 5/5 B/L UE strength, 5/5 B/L LE strength. No gait disturbance Skin: (-) rashes , (-) erythema. Psych: euthymic mood Results & Data Results & Data Vital Signs (Past 12 Hours) Vital Signs Temp Pulse Pulse Resp BP Pulse Ox O2 Del Method 08/29/24 07:35 36.4 C L 73 16 128/84 97 Room Air 08/29/24 07:12 58 L 08/29/24 03:54 36.6 C 70 18 136/84 96 Room Air 08/28/24 23:36 36.4 C L 78 18 135/93 96 Room Air 08/28/24 21:49 72 Laboratory Results Short CBC 08/29/24 Range/Units 06:15 WBC 6.55 (4.8-10.8) K/ul Hgb 15.3 (14.0-18.0) g/dl Hct 43.3 (42.0-52.0) % Plt Count 208 (130-400) K/uL BMP 08/29/24 06:15 Sodium 139 Potassium 4.0 Chloride 104 Carbon Dioxide 27 BUN 25 H Creatinine 0.88 Glucose 104 H Calcium 9.4 (1) Alcohol withdrawal Complication of substance-induced condition: uncomplicated Qualified Code(s): F10.930 - Alcohol use, unspecified with withdrawal, uncomplicated
[2024-08-29] MEDS: ATORVASTATIN 20 MG TAB PO SCH (08:26)
[2024-08-29] MEDS ORDERED: NON-FORMULARY MEDICATION (Multivitamin Tablet) PO SCH (09:00)
[2024-08-29] MEDS: DOCUSATE SODIUM 100 MG CAP PO SCH (12:54)
[2024-08-29] MEDS: diazePAM 5 MG TABLET PO SCH (12:54)
[2024-08-29] MEDS: POLYETHYLENE (MIRALAX) 17 GM PACK PO PRN (16:33)
[2024-08-29] MEDS ORDERED: BUPRENORPHINE/NALOXONE 2/0.5MG TAB SL SCH (18:30)
[2024-08-29] MEDS: BUPRENORPHINE/NALOXONE 2/0.5MG TAB SL ONE (18:44)
[2024-08-29] MEDS: ACETAMINOPHEN 500 MG TAB PO PRN (19:37)
[2024-08-29 22:26] VITALS: TEMP 97.5
[2024-08-29] MEDS: GABAPENTIN 600 MG TAB PO SCH (22:59)
[2024-08-30 07:21] VITALS: PULSE 66; RESP 18; O2SAT 99
[2024-08-30] MEDS: BUPRENORPHINE/NALOXONE 2/0.5MG TAB SL SCH (08:26)
--- NOTE | 2024-08-30 09:20 | Discharge Summary ---
Date of Service August 30, 2024 Admission HPI Per Admitting Provider History obtained from patient, family, and records. Medical history significant for situational hypertension, hyperlipidemia, possible BETH, GERD, anxiety disorder, chronic pain/history opioid addiction on Suboxone, ongoing tobacco/alcohol abuse. Patient noted increased anxiety since last night. 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 Denies suicidality. Patient seen at urgent care center today. Patient proceeded to ER for detox. No prior history of alcohol withdrawal seizures. Medical History as above Surgical History : None Family History : Kidney problems Personal/Social history : Half pack daily, alcohol abuse, investment officer Admission Exam Per Admitting Provider GENERAL: Slightly anxious, pleasant, obese, tremulous, no respiratory distress SKIN: Normal color, warm HEENT: [place] palpebral conjunctivae, no ptosis, dry buccal mucosa NECK : Supple, no tenderness CHEST : CTA, no tenderness HEART : RRR, no obvious murmurs ABDOMEN: Some distention, nontender EXTREMITIES : No LE swelling/tenderness, no other conspicuous deformities noted NEUROLOGIC : Coherent, no facial asymmetry, tremulous, no other gross focality Principal Diagnosis alcohol detox withdrawl Discharge Exam Neuro: AAOx4, PERRLA, no aphagia, memory changes, CNII-XII grossly intact HEENT: head normocephalic, moist mucus membranes CV: S1/S2, (-) M/G/R, (-) edema, cap refill < 3 seconds Resp: Lungs CTA in all freed. On RA GI: Abdomen S/NT/ND, Ax4 bowel sounds, (-) CVA tenderness Musculoskeletal: 5/5 B/L UE strength, 5/5 B/L LE strength. No gait disturbance Skin: (-) rashes , (-) erythema. Psych: euthymic mood Discharge Data Allergies Allergy/AdvReac Type Severity Reaction Status Date / Time No Known Allergies Allergy Verified 08/27/24 10:03 Consultations 08/27/24 20:35 ED Decision to Admit Stat Hospital Course (1) Alcohol withdrawal: Armond Olguin is a 44y/o M with PMHx significant for hyperlipidemia, GERD, history of narcotic abuse [on Suboxone] and panic disorder/anxiety who presented to the ED on 08/27/2024 for alcohol detoxification and increased anxiety. Patient reports that he was previously drinking 5 vodka shooters and a sixpack of alcoholic seltzers per night. His last drink was yesterday evening around 6 PM. He is very eager to stop drinking entirely. He does have a history of substance abuse disorder and is currently on Suboxone. While he was admitted, he was started on a gabapentin taper, scheduled valium and PRN Ativan. He was also Started on thiamine and folic acid. His alcohol withdrawal symptoms remained well-controlled throughout his hospitalization. He has participated in inpatient alcohol rehab previously but was not interested in pursuing this during this admission. He has an established relationship with Dr. Manfred Ruby through [facility] and also sees a therapist weekly. Incidentally he was found to have high cholesterol; Triglycerides 255, Total Cholesterol 277, LDL 179, HDL 47, VLDL 51. Patient was agreeable with restarting statin therapy which we will continue upon his discharge. He does have a maternal family history of CAD. Lengthy conversation held with patient during his hospitalization regarding development of coping mechanisms in place of alcohol use. It seems that he has a strong friend brace at home to support his sobriety journey. He states that he is not happy with his current job but is looking for avenues of where he can remain positive outside of the workplace. His friend support system drinks socially but are positive influences for him. During his hospitalization there were no signs of tremulous or withdrawal effects. When he was discharged he was in stable condition with normal vital signs. This chart was completed in part utilizing Speech Voice Recognition Software. Grammatical errors, random word insertions, pronoun errors, and incomplete sentences are an occasional consequence of this system due to software limitations, ambient noise, and hardware issues. Any formal questions or concerns about the content, text, or information contained within the body of this dictation should be directly addressed to the provider for clarification. Total Time Total Time Spent Total Time Spent (In Minutes): I spent a total of 56 minutes coordinating, documenting, and providing care for this patient excluding time spent in the performance of separately billed services. This included personally reviewing all current laboratories and imaging studies, medical reconciliation, outpatient chart review and discussion with specialists. Discharge Plan Discharge Items Patient Disposition: Home - Self-Care Reason For Visit: ETOH WITHDRAWAL Discharge Diagnosis: Detox Request/Monitor for alcohol withdrawl effects Activity: Resume your previous activity Non-emergency contact: Primary Care Provider, Psychiatrist and Airport Driver Call non-emergency contact if: you have any medication questions and your symptoms worsen Follow-up/Referrals: Merlin Guthrie MD [Primary Care Provider] - Diet: Regular Addtl Attending Provider Instructions: Andrés - You came to the [facility] with a goal to work towards alcohol detoxification. You indicated that you did not have any prior history of alcohol withdrawl seizures. To prepare your body for detox, we had some withdrawl medications ordered to lesson your symptoms, if you had any. You were started on a tapered Gabapentin taper and also given Vitamin B12, Folic Acid and Thiamine. Additionally, you were given Valium as a relaxant to ease symptoms and anxiety. While you were here, we obtained basic blood panel laboratory work and identified that you had elevated cholesterol. In all patients, a healthy diet, physical activity, and maintaining a healthy weight are all important for overall health and should be pursued apart from whether they reduce LDL-C (Low- density lipoprotein), which is a type of cholesterol in the blood that can sometimes be referred to as "bad" cholesterol. The more that the LDL builds up in the dempsey of your arteries (called plaque); this plaque can narrow the vessels over time increasing your risk of heart disease and complications. Please see the attached education panel regarding primary prevention of cardiovascular disease. MEDICATION CHANGES: 1. We STARTED Atorvastatin 20 mg by mouth daily while you were in the hospital and you will continue this upon discharge. You will follow up with your PCP to continue receiving blood work and adjust the dosing as needed. 2. We STARTED Thiamine 100 mg by mouth daily. When you consume alcohol, your body can stop absorbing thiamine (vitamin B1). It is best to avoid drinking alcohol with taking Thiamine 3. We STARTED Folic Acid 1 mg by mouth as well. 4. We continued to give you Alprazolam as it was a home medication for you; however, I would recommend considering transitioning off of a benzodiazepine as they can have addictive properties. We will order you TEN additional pills until you can see your PCP for further discussion/prescription refill. RECOMMENDATIONS FOR FOLLOW-UP: It is recommended that you follow-up closely with your PCP, Dr. Guthrie. We suggest for you to continue seeing psychiatry services through [facility] as you have already established for continued support with your sobriety. You indicated that your next appointment is around in August. Additionally, you could benefit from continuation of a medication called Gabapentin that you took in the hospital. Gabapentin can reduce your desire to drink and can help you stop drinking. Gabapentin may also help improve symptoms of anxiety and difficulty sleeping that may occur when stopping alcohol use. It is likely to be continued therapeutic for you to continue working weekly with your outpatient therapist to establish appropriate coping mechanisms as you continue your journey with sobriety. I want to commend you for all of the awareness and commitment you show towards your health. Seek medical attention if you have: * temperature above 101 * chest pain or trouble breathing * abdominal pain, nausea, vomiting * diarrhea, dark stools or bloody stools * any unanswered questions or concerns Call 911 if symptoms are severe. Please take good care of yourself. It has been a pleasure taking care of you. Please take care of yourself. If you have any questions regarding your recent hospitalization please contact [facility] and request Estela Mars @ [phone]. Pending Studies at Discharge: No Stand-Alone Forms: My [facility], Work/School Release, Smoking Cessation Medications and DC Order Prescriptions: New atorvastatin 20 mg Tablet 20 mg PO QAM Qty: 30 0RF thiamine HCl (vitamin B1) 100 mg Tablet 100 mg PO QAM Qty: 30 0RF folic acid 1 mg Tablet 1 mg PO QAM Qty: 30 0RF Continued buprenorphine-naloxone 2-0.5 mg tablet, sublingual 1 tab sublingual DAILY omeprazole 20 mg capsule,delayed release(DR/EC) 20 mg PO QAM propranolol 20 mg tablet 20 mg PO BID alprazolam 1 mg tablet 1 mg PO DAILY PRN (Reason: Anxiety) Qty: 10 0RF Discontinued multivitamin Tablet 1 tab PO QAM Qty: 0 Discharge Orders: Discharge Order (Routine); Ordered 08/30/24 Ordered By: Opal Coleman/Other Patient Handouts: Alcohol Withdrawal: What to Expect Admission Data Admit Date/Time: 08/27/24 21:38 Attending Provider: Chang Leavitt Admit Provider: Russel Chavez Primary Care Provider: Merlin Guthrie Other Providers: Russel Chavez Other Interventions: Discharge Summary Assessment (RN) Last Done: 08/30/24 10:51 Supervising Physician Co-Signing Physician Notes Patient seen and examined independently. He is alert oriented x 3; not in distress. He denies tremors, anxiety, hallucinations. No sign or symptoms of withdrawal Patient wants to go home and follow-up with the outpatient resources Patient to follow-up with his psychiatry as well I have reviewed the advanced practitioner's documentation, and I agree with, and take responsibility for the plan of care I spent a total of 20 minutes coordinating, documenting, and providing care for this patient excluding time spent in the performance of separately billed services. All of the aforementioned completed while collaborating with the assigned advanced practitioner for a full treatment plan
[2024-08-30 10:51] VITALS: BP 146/88
[2024-08-31] MEDS ORDERED: GABAPENTIN 600 MG TAB PO SCH (11:00)
== END 2024-08-30 11:25 | disposition home or self-care (01) | DRG 897 ==
LOC: ED 17:43 → 2W 21:38